=== PATIENT | female | born 1955 | race Caucasian/White ===

== ENCOUNTER 2022-08-30 13:30 | Outpatient (CLI) | payer MEDICARE | END 2022-08-30 23:59 | disposition home or self-care (01) | LOC: CARD DIAG 13:30 | PROVIDERS: ATTEND Internal Medicine Cardiovascular Disease | DX: I08.0 Rheumatic disorders of both mitral and aortic valves (principal); R06.02 Shortness of breath | CPT/HCPCS: 93306 ==